=== PATIENT | female | born 1985 | race Caucasian/White ===

== ENCOUNTER 2020-02-14 21:57 | Emergency (ER) | payer OTHER ==
[~2020-02-14] VITALS: Ht 167.6 cm; Wt 103.6 kg
[2020-02-14 22:00] VITALS: BP 153/100
--- NOTE | 2020-02-14 22:14 | NUR ---
pt resting on gurney, provided pt with warm blanket, monitors applied, siderails up x2, call light within reach
--- NOTE | 2020-02-14 22:15 | NUR ---
pt to ultrasound
== END 2020-02-14 23:27 | disposition home or self-care (01) ==
LOC: ED 22:44
DX: I80.02 Phlebitis and thrombophlebitis of superficial vessels of left lower extremity (principal); Z86.718 Personal history of other venous thrombosis and embolism
CPT/HCPCS: 99284